=== PATIENT | female | born 1955 | race Caucasian/White ===

== ENCOUNTER → 2017-11-29 | Outpatient (CLI) | payer OTHER ==
[~2017-11-29] MED LIST: ALDACTONE25 MG PO; B-COMPLEX-VITA1 EACH PO; CALCIUM OYSTER500 MG PO; CELEXA40 MG PO; CIPROFLOXACIN500 M1 PO; FISHOIL PO; GINKGO BILOBA40 M1 PO; HYDROCODON-ACE1 EACH PO; L-LYSINE500 M1 PO; MAGNESIUM OXID200 MG PO; MULTIVITAMINS PO
== END ==
LOC: RAD 08:11
DX: Z12.31 Encounter for screening mammogram for malignant neoplasm of breast (principal)

== ENCOUNTER → 2018-12-22 | Outpatient (CLI) | payer OTHER | LOC: RAD 12:21 | DX: Z12.31 Encounter for screening mammogram for malignant neoplasm of breast (principal) ==

== ENCOUNTER 2019-07-17 23:25 | Emergency (ER) | payer OTHER ==
[~2019-07-17] VITALS: Ht 172.7 cm; Wt 61.2 kg
[2019-07-18 00:18] LABS: ABSOLUTE NEUTROPHILS 5.3 thou/uL (1.4-8.2); EOSINOPHILS 6.9 % (0.0-3.0); HEMATOCRIT 35.3 % (37.0-47.0); HEMOGLOBIN 11.5 gm/dL (12.0-15.0); LYMPHOCYTES 25.9 % (24.0-44.0); MCH 28.5 pg (26.0-34.0); MCHC 32.6 g/dL (28.0-37.0); MCV 87.5 fL (80.0-100.0); MONOCYTES 6.4 % (1.0-8.0); PLATELET COUNT 261 thou/uL (150-400); POLYS 59.8 % (36.0-66.0); RBC 4.03 mil/uL (4.20-5.00); RDW 14.6 % (10.5-14.5); WBC 8.9 thou/uL (4.0-11.0)
[2019-07-18 00:29] LABS: ANION GAP 12 mmol/L (7-16); BUN 22 mg/dL (7-18); CHLORIDE 102 mmol/L (98-107); CO2 25 mmol/L (21-32); CREATININE 0.8 mg/dL (0.6-1.0); GLUCOSE 113 mg/dL (74-106); SODIUM 139 mmol/L (136-145)
[2019-07-18 00:37] LABS: TROPONIN-I <0.06 ng/mL (<0.06)
[2019-07-18] MEDS ORDERED: ANTIVERT25 MG PO (01:54)
[2019-07-18] MEDS ORDERED: ZOFRAN ODT4 MG PO (01:54)
[2019-07-18 02:13] VITALS: BP 113/58
--- NOTE | 2019-07-18 08:12 | EKG ---
[address] [address] ELECTROCARDIOGRAM REPORT Name: SALVATORE ELLIS [id number] ������������������ Admission: 07/17/19 ������������������ Attend Phys: Discharge: 07/18/19 ������������������ Date of : 53 Report #: [id number] ����������������������������������������������������������������� [id number] THIS REPORT FOR: //name// [facility] ED Test Date: 2019-07-17 Test Time: 23:51:55 Pat Name: SALVATORE ELLIS Department: Room: Gender: F [employer] Supervisor: [facility] : 1955 Requested By: Young Narvaez Order Number: [id number] MD: Kenrick Francis Measurements Intervals [place] Rate: 74 P: 77 CT: 173 QRS: -37 QRSD: 95 T: 46 QT: 455 QTc: 505 Interpretive Statements Sinus rhythm Left atrial enlargement Left axis deviation Low voltage, extremity leads Minimal ST depression, anterolateral leads Prolonged QT interval Baseline wander in lead(s) V1 No previous ECG available for comparison Electronically Signed On 07-18-2019 8:12:48 CDT by Kenrick Francis [email or web address] ��������������������������������������������� <ELECTRONICALLY SIGNED> ���������������������������������������� By: Kenrick Francis MD ��������������������������������������������� 07/18/19811 50 50 Kenrick Francis MD /EPI
== END 2019-07-18 02:13 | disposition home or self-care (01) ==
LOC: ER 23:25
PROVIDERS: Emergency Medicine
DX: H81.399 Other peripheral vertigo, unspecified ear (principal); R11.2 Nausea with vomiting, unspecified; F32.9 Major depressive disorder, single episode, unspecified; F41.9 Anxiety disorder, unspecified; Z90.49 Acquired absence of other specified parts of digestive tract; Z88.0 Allergy status to penicillin

== ENCOUNTER → 2019-08-22 | Outpatient (CLI) | payer OTHER ==
[~2019-08-22] MED LIST changes: +ANTIVERT25 MG PO; +ZOFRAN ODT4 MG PO
== END ==
LOC: NUC 09:00
DX: M85.89 Other specified disorders of bone density and structure, multiple sites (principal); M81.0 Age-related osteoporosis without current pathological fracture; Z78.0 Asymptomatic menopausal state

== ENCOUNTER → 2020-01-09 | Outpatient (CLI) | payer OTHER | LOC: BC 07:50 | DX: Z12.31 Encounter for screening mammogram for malignant neoplasm of breast (principal) ==

== ENCOUNTER → 2021-01-12 | Outpatient (CLI) | payer OTHER, MEDICARE | LOC: BC 09:37 | PROVIDERS: ATTEND Obstetrics & Gynecology | DX: Z12.31 Encounter for screening mammogram for malignant neoplasm of breast (principal) ==